=== PATIENT | female | born 1960 | race Caucasian/White ===

== ENCOUNTER → 2017-10-13 | Outpatient (CLI) | payer MEDICARE ==
[~2017-10-13] MED LIST: 1ST CHOICE LAN1 EACH MC; ADULT LOW DOSE81 MG PO; ASPIRIN325 OR; B-COMPLEX-VITA1 EACH PO; BYSTOLIC10 MG OR; CALCIUM PO; CILOSTAZOL 100100 M1 PO; CO Q-10200 MG OR; CRESTOR20 MG PO; GLUCOMETER; HUMALOG100 UNIT/2 SUBQ; HYDROCHLOROTHIA25 M1 PO; LANCET DEVICE1 EACH MC; LANTUS SUBQ; LANTUS100 UNIT/M SUBQ; LIPITOR80 MG PO; LISINOPRIL10 MG PO; LOPRESSOR50 PO; NORCO 5-325 TA1 EACH PO; NORVASC 5 MG TAB5 MG PO; NOVOLOG100 UNIT/1 SUBQ; PLAVIX 75 MG TA75 MG PO; PRESERVISION A1 EAC2 PO; SIMVASTATIN40 MG PO; SYNTHROID100 MC1 PO; SYNTHROID150 MCG PO; SYNTHROID75 MCG PO; VITAMIN D1000 UNI1 OR; ZOCOR 10 MG TAB10 MG OR
[2017-10-13 09:48] LABS: ABSOLUTE BASOPHILS 0.1 thou/uL (0.0-0.2); ABSOLUTE EOSINOPHILS 0.1 thou/uL (0.0-0.7); ABSOLUTE LYMPHOCYTES 0.9 thou/uL (0.8-5.3); ABSOLUTE MONOCYTES 0.5 thou/uL (0.0-1.2); ABSOLUTE NEUTROPHILS 6.3 thou/uL (1.6-8.1); BASOPHILS 1.1 %; EOSINOPHILS 1.5 %; HEMOGLOBIN 13.5 gm/dL (12.0-15.0); LYMPHOCYTES 11.3 %; MCH 28.6 pg (26.0-34.0); MCHC 33.7 g/dL (28.0-37.0); MCV 84.9 fL (80.0-100.0); MONOCYTES 6.3 %; MPV 7.3 fl. (7.2-11.1); NUCLEATED RBCS 0 /100WBC; PLATELET COUNT* 265 thou/uL (150-400); POLYS 79.8 %; RBC 4.71 mil/uL (4.20-5.00); RDW-CV 15.5 % (10.5-14.5); WBC 7.9 thou/uL (4.0-11.0)
[2017-10-13 10:02] LABS: ALBUMIN 3.9 g/dL (3.4-5.0); CALCIUM 9.3 mg/dL (8.5-10.1); CREATININE 1.3 mg/dL (0.6-1.3); PHOSPHORUS* 3.8 mg/dL (2.5-4.9); POTASSIUM 4.3 mmol/L (3.5-5.1)
[2017-10-13 19:09] LABS: eGFR IF AFRICAN AMERICAN 53 (>59)
[2017-10-13 21:11] LABS: PARATHYROID HORMONE 56 pg/mL (15-65)
== END ==
LOC: M.LAB 09:06
PROVIDERS: Internal Medicine Nephrology
DX: I13.0 Hypertensive heart and chronic kidney disease with heart failure and stage 1 through stage 4 chronic kidney disease, or unspecified chronic kidney disease (principal); E11.22 Type 2 diabetes mellitus with diabetic chronic kidney disease; N18.3 Chronic kidney disease, stage 3 (moderate); I50.32 Chronic diastolic (congestive) heart failure; I70.1 Atherosclerosis of renal artery; I25.10 Atherosclerotic heart disease of native coronary artery without angina pectoris; E78.5 Hyperlipidemia, unspecified; I73.9 Peripheral vascular disease, unspecified; N17.0 Acute kidney failure with tubular necrosis; E87.1 Hypo-osmolality and hyponatremia; E66.01 Morbid (severe) obesity due to excess calories; Z95.1 Presence of aortocoronary bypass graft; Z98.890 Other specified postprocedural states; Z87.891 Personal history of nicotine dependence

== ENCOUNTER → 2018-01-10 | Outpatient (CLI) | payer MEDICARE ==
[2018-01-10 14:13] LABS: ALBUMIN 3.7 g/dL (3.4-5.0); ALKALINE PHOSPHATASE 144 U/L (46-116); ANION GAP 13 mmol/L (7-16); BUN 23 mg/dL (7-18); CALCIUM 9.2 mg/dL (8.5-10.1); CHLORIDE 104 mmol/L (98-107); CHOLESTEROL 158 mg/dL (<200); CO2 24 mmol/L (21-32); CREATININE 1.3 mg/dL (0.6-1.3); GLUCOSE 96 mg/dL (70-99); HDL CHOLESTEROL 53 mg/dL (>40); LDL CHOLESTEROL 75 mg/dL (<100); SERUM ASSESSMENT Clear; SGOT 23 U/L (15-37); SGPT 38 U/L (30-65); SODIUM 141 mmol/L (136-145); TOTAL BILIRUBIN 0.7 mg/dL (<0.1-1.0); TOTAL PROTEIN 7.4 g/dL (6.4-8.2); TRIGLYCERIDE 154 mg/dL (<150); VLDL 31 mg/dL (<40)
== END ==
LOC: M.LAB 13:44
PROVIDERS: Internal Medicine
DX: E78.2 Mixed hyperlipidemia (principal); I12.9 Hypertensive chronic kidney disease with stage 1 through stage 4 chronic kidney disease, or unspecified chronic kidney disease; N18.3 Chronic kidney disease, stage 3 (moderate); E11.9 Type 2 diabetes mellitus without complications; I25.10 Atherosclerotic heart disease of native coronary artery without angina pectoris; I73.9 Peripheral vascular disease, unspecified; I40.1 Isolated myocarditis

== ENCOUNTER → 2018-01-16 | Outpatient (CLI) | payer MEDICARE | LOC: M.ULTRA 07:04 | DX: I77.1 Stricture of artery (principal); R09.89 Other specified symptoms and signs involving the circulatory and respiratory systems ==

== ENCOUNTER 2018-03-16 08:18 | Inpatient (IN) | payer MEDICARE ==
[~2018-03-16] VITALS: Ht 165.1 cm; Wt 123.4 kg
[~2018-03-16 08:18] MED LIST changes: -LANTUS100 UNIT/M SUBQ; -NORCO 5-325 TA1 EACH PO; -PRESERVISION A1 EAC2 PO; -SYNTHROID100 MC1 PO; -SYNTHROID150 MCG PO
[2018-03-16 13:21] LABS: ABSOLUTE BASOPHILS 0.1 thou/uL (0.0-0.2); ABSOLUTE EOSINOPHILS 0.1 thou/uL (0.0-0.7); ABSOLUTE MONOCYTES 0.5 thou/uL (0.0-1.2); ABSOLUTE NEUTROPHILS 6.2 thou/uL (1.6-8.1); BASOPHILS 0.9 %; EOSINOPHILS 1.1 %; HEMATOCRIT 40.8 % (37.0-47.0); HEMOGLOBIN 13.9 gm/dL (12.0-15.0); MCHC 34.1 g/dL (28.0-37.0); MCV 85.1 fL (80.0-100.0); MONOCYTES 6.8 %; MPV 7.3 fl. (7.2-11.1); NUCLEATED RBCS 0 /100WBC; PLATELET COUNT* 263 thou/uL (150-400); POLYS 78.2 %; RBC 4.79 mil/uL (4.20-5.00); RDW-CV 14.9 % (10.5-14.5); WBC 7.9 thou/uL (4.0-11.0)
[2018-03-16 13:25] LABS: CALCIUM 9.4 mg/dL (8.5-10.1); CREATININE 1.3 mg/dL (0.6-1.3); POTASSIUM 3.8 mmol/L (3.5-5.1)
[2018-03-16] MEDS ORDERED: LANTUS100 UNIT/M SUBQ (14:00)
[2018-03-16] MEDS ORDERED: SYNTHROID150 MCG PO (14:03)
[2018-03-16] MEDS ORDERED: PRESERVISION A1 EAC2 PO (14:04)
[2018-03-16 14:40] VITALS: BP 173/86
[2018-03-16 23:00] VITALS: BP 120/56
--- NOTE | 2018-03-16 23:17 | NUR ---
PT. IS A 58 YEAR OLD FEMALE ADMITTED TO BED 7 DIAGNOSIS POST CAROTID ENDARTERECTOMY ON LEFT SIDE. ALERT AND ORIENTED X4. C/O PAIN 5/10 BUT DENIED HYDROCODONE. ROOM AIR. ICE PROVIDED TO LEFT CAROTID INCISION. UP TO BEDSIDE COMMODE STAND BY ASSIST. TOLERATING ICE WELL. CALL LIGHT IN REACH, WILL CONTINUE TO MONITOR.
[2018-03-17] VITALS (10 sets, daily range): BP systolic 101–137; BP diastolic 51–58
[2018-03-17] MEDS ORDERED: SYNTHROID100 MC1 PO (00:04)
--- NOTE | 2018-03-17 05:04 | NUR ---
PT. HAS DONE WELL THROUGHOUT THE NIGHT. C/O PAIN, HYDROCODONE GIVEN PER PRN ORDER, PAIN RELIEVED. ROOM AIR. SINUS RHYTHM, BP'S WITHIN NORMAL LIMITS. UP TO BEDSIDE COMMODE STAND BY ASSIST. GOAL TO DISCHARGE HOME TODAY. CALL LIGHT IN REACH, WILL CONTINUE TO MONITOR.
[2018-03-17] MEDS ORDERED: NORCO 5-325 TA1 EACH PO (09:19)
--- NOTE | 2018-03-17 13:46 | EKG ---
[place] [address] ELECTROCARDIOGRAM REPORT Name: SIVAKUMAR BARRAGAN Room: [address] ADM IN [facility]#: [id number] Admission: 03/16/18 Attend Phys: Katiuska Flaherty Discharge: Date of : 56 Report #: [id number] THIS REPORT FOR: //name// [facility] Test Date: 2018-03-16 Test Time: 13:03:31 Pat Name: SIVAKUMAR BARRAGAN Department: Room: [place] [address] Gender: F Cell Efficiency Supervisor: : 1960 Requested By: Juan Pablo Abrams Order Number: [id number] MD: Tony Moraes Measurements Intervals [place] Rate: 94 P: 47 VT: 161 QRS: 35 QRSD: 89 T: 86 QT: 451 QTc: 565 Interpretive Statements Sinus rhythm Borderline T abnormalities, lateral leads Prolonged QT interval Compared to ECG 05/25/2016 15:23:58 Sinus tachycardia no longer present T-wave abnormality still present Electronically Signed On 03-17-2018 13:46:21 CDT by Tony Moraes [email or web address] <ELECTRONICALLY SIGNED> By: Tony Moraes MD, [facility] 03/17/18 1346 1303 1303 Tony Moraes MD, [facility] /EPI
--- NOTE | 2018-03-17 14:33 | NUR ---
PATIENT DISCHARGED HOME. DISCHARGE TEACHING GIVEN BY RAMON BOURGEOIS. REINFORCED BY THIS NURSE. BOTH IVS DISCONTINUED. PATIENT DRESSED HERSELF. ALL BELONGINGS GATHERED BY PATIENT AND HER SON. TAKEN OUT BY WHEELCHAIR WITH THIS NURSE AT 1430 BY WHEELCHAIR AND LEFT WITH SON IN PRIVATE VEHICLE.
--- NOTE | 2018-03-27 08:10 | PATH ---
[facility] [address] [place] [address] PATHOLOGY RPT PROCEDURE Name: SIVAKUMAR BARRAGAN Room: [address] IN .R.#: [id number] Admission: 03/16/18 Date of : 56 Discharge: 03/17/18 Report #: [id number] Path Case #: [id number] [facility] Accession Number: [id number] . 01 Material submitted: . PLAQUE, LEFT CAROTID . 01 Clinical history: . Carotid stenosis. . 02 Diagnosis: Left carotid plaque: - Fibrointimal atherosclerotic plaque with calcifications. (SARAH:pit; 03/21/2018) QTP/03/21/2018 . 02 Electronically signed: . Andi Tay MD, Pathologist NPI- [id number] . 01 Gross description: . Received in formalin labeled "Sivakumar Barragan, left carotid plaque" is a tubular portion of cook-white rubbery tissue measuring 2.2 cm in length and ranging from 0.3-0.6 cm in diameter. The specimen is Y-shaped, and the luminal diameter ranges from 0.2-0.5 cm. Upon sectioning, calcifications comprise approximately 30% of the specimen. Shampoo Person sections are submitted in cassette A1 following decalcification. ([facility]; 03/19/2018) SYC/SYC . 02 Pathologist provided ICD-10: I65.22 . 02 CPT . 693374, [id number] Performed at: 01 [facility] [address], [place] [id number] MD Nicho Obrien MD Phone: [phone] Performed at: 02 [facility] [address] [place] [id number] MD Andi Tay MD Phone: [phone]
--- NOTE | 2018-04-03 13:51 | OP ---
[facility] [address] [place] [address] OPERATIVE REPORT Name: SIVAKUMAR BARRAGAN Room: [address] IN .R.#: [id number] Admission: 03/16/18 Attend Phys: Katiuska Flaherty Discharge: 03/17/18 Date of : 56 Report #: [id number] THIS REPORT FOR: //name// CC: Juan Pablo Reid DATE OF SERVICE: 03/16/2018 PREOPERATIVE DIAGNOSIS: Left carotid stenosis. POSTOPERATIVE DIAGNOSIS: Left carotid stenosis. SURGEON: Juan Pablo Abrams DO. PURCHASER: Darin , ORT. ANESTHESIA: General endotracheal anesthesia. PROCEDURE: 1. Left carotid endarterectomy with bovine pericardial patch angioplasty. 2. Intraoperative carotid duplex. ESTIMATED BLOOD LOSS: 100 mL. SPECIMEN: Plaque. COMPLICATIONS: None. CONDITION: Stable. DISPOSITION: ICU. INDICATIONS FOR THE PROCEDURE AND CONSENT: The patient is a 58-year-old female with severe left internal carotid artery stenosis. Recommendation for left carotid endarterectomy with patch angioplasty was made. Risks and benefits were discussed, infection, bleeding, nerve injury, stroke, heart attack, . The patient wished to proceed, was consented and scheduled. PROCEDURE IN DETAIL: After timeout was performed, the patient was placed in supine position with sterile prep and drape of the anterior neck and chest wall. Of note, she required taping of her chest wall to help exposure of the neck due to her super morbid obesity. Lidocaine was injected in the anticipated incision and semi-transverse incision made anterior to the sternocleidomastoid and dissection carried down using [address] [place] [address] OPERATIVE REPORT Name: SIVAKUMAR BARRAGAN Room: [address] IN [facility].#: [id number] Admission: 03/16/18 Attend Phys: Katiuska Flaherty Discharge: 03/17/18 Date of : 56 Report #: [id number] electrocautery and Metzenbaum scissors used to sharply dissect out the common carotid artery. This was then encircled with a Rumel tourniquet. Facial vein was divided between 2-0 silk sutures and Metzenbaum scissors. The hypoglossal nerve was identified and preserved. The internal and external carotid arteries were then controlled with vessel loops. The patient was systemically heparinized with 6000 units of heparin. The internal, external and common carotid artery was then controlled with clamps and vessel loops and a longitudinal arteriotomy made with 11 blade scalpel and Bundy scissors. A #10 carotid shunt was then used as the distal internal carotid artery was quite small. Once the shunt was applied, the endarterectomy was performed using a plaque elevator. The endarterectomized portion was meticulously cleaned with forceps. The distal end point tapered nicely and did not require any tacking sutures. The area was copiously irrigated. There was noted to have some thrombus formation within the wound. I gave additional 1000 units of heparin as a precaution. Once I was satisfied with the endarterectomy, bovine pericardial patch was selected and sutured in place with 6-0 Prolene in circumferential fashion. The shunt was removed, reapplying clamps. The endarterectomized portion was copiously irrigated with heparin saline. Backbleeding was allowed from the external carotid artery and the area was reirrigated. Two cardiac cycle backbleeding from the internal carotid artery was also allowed and the area was reirrigated and the patch was completed. The blood flow was then restored through the external carotid artery and then up to the internal carotid artery. An intraoperative duplex was then performed, which demonstrated appropriate waveforms for the internal, external and common carotid artery. B-mode imaging demonstrated no flaps, debris or concerns. Please see saved images. Being satisfied with the endarterectomy, the wound was copiously irrigated and noted to be hemostatic. 50 units of protamine was administered by Anesthesia team to reverse the heparin. Wound was then closed in layers using 2-0 Vicryl, 3-0 Vicryl and 4-0 Monocryl suture and Dermabond dressing was applied. The patient tolerated the procedure well. Lap, needle, and instrument counts correct. The patient was transferred to recovery in stable condition. <ELECTRONICALLY SIGNED> By: Juan Pablo Abrams DO 04/03/18 1351 2047 [id number] Pablo Abrams DO /nt
== END 2018-03-17 14:30 | disposition home or self-care (01) | DRG 38 ==
LOC: M.PRE 08:18 → M.TBA 12:40 → M.ICU 12:40
PROVIDERS: Surgery; ADMIT Internal Medicine
DX: I65.22 Occlusion and stenosis of left carotid artery (principal); Z68.42 Body mass index [BMI] 45.0-49.9, adult; E66.01 Morbid (severe) obesity due to excess calories; I10 Essential (primary) hypertension; I12.9 Hypertensive chronic kidney disease with stage 1 through stage 4 chronic kidney disease, or unspecified chronic kidney disease; Z79.899 Other long term (current) drug therapy; I25.10 Atherosclerotic heart disease of native coronary artery without angina pectoris; E78.5 Hyperlipidemia, unspecified; E11.51 Type 2 diabetes mellitus with diabetic peripheral angiopathy without gangrene; N18.3 Chronic kidney disease, stage 3 (moderate); E11.22 Type 2 diabetes mellitus with diabetic chronic kidney disease; Z79.82 Long term (current) use of aspirin; Z95.1 Presence of aortocoronary bypass graft; Z87.891 Personal history of nicotine dependence

== ENCOUNTER → 2018-10-11 | Outpatient (CLI) | payer MEDICARE ==
[~2018-10-11] MED LIST changes: +LANTUS100 UNIT/M SUBQ; +NORCO 5-325 TA1 EACH PO; +PRESERVISION A1 EAC2 PO; +SYNTHROID100 MC1 PO; +SYNTHROID150 MCG PO
[2018-10-11 09:12] LABS: ABSOLUTE BASOPHILS 0.1 thou/uL (0.0-0.2); ABSOLUTE EOSINOPHILS 0.2 thou/uL (0.0-0.7); ABSOLUTE LYMPHOCYTES 1.1 thou/uL (0.8-5.3); ABSOLUTE MONOCYTES 0.6 thou/uL (0.0-1.2); ABSOLUTE NEUTROPHILS 5.4 thou/uL (1.6-8.1); BASOPHILS 1.3 %; EOSINOPHILS 2.1 %; HEMATOCRIT 40.4 % (37.0-47.0); HEMOGLOBIN 13.7 gm/dL (12.0-15.0); LYMPHOCYTES 14.5 %; MCH 29.5 pg (26.0-34.0); MCHC 33.8 g/dL (28.0-37.0); MCV 87.4 fL (80.0-100.0); MONOCYTES 8.2 %; MPV 7.4 fl. (7.2-11.1); NUCLEATED RBCS 0 /100WBC; PLATELET COUNT* 276 thou/uL (150-400); POLYS 73.9 %; RBC 4.63 mil/uL (4.20-5.00); RDW-CV 15.7 % (10.5-14.5); WBC 7.3 thou/uL (4.0-11.0)
[2018-10-11 09:37] LABS: ALBUMIN 3.6 g/dL (3.4-5.0); CALCIUM 8.9 mg/dL (8.5-10.1); CREATININE 1.4 mg/dL (0.6-1.3); POTASSIUM 4.2 mmol/L (3.5-5.1); TOTAL BILIRUBIN 0.6 mg/dL (<0.1-1.0); TOTAL PROTEIN 7.4 g/dL (6.4-8.2)
[2018-10-11 09:50] LABS: CALCIUM 8.9 mg/dL (8.5-10.1); CREATININE 1.5 mg/dL (0.6-1.3); PHOSPHORUS* 4.2 mg/dL (2.5-4.9)
== END ==
LOC: M.LAB 08:46
PROVIDERS: Internal Medicine Nephrology
DX: I12.9 Hypertensive chronic kidney disease with stage 1 through stage 4 chronic kidney disease, or unspecified chronic kidney disease (principal); N18.3 Chronic kidney disease, stage 3 (moderate); E78.5 Hyperlipidemia, unspecified

== ENCOUNTER → 2019-10-22 | Outpatient (CLI) | payer MEDICARE ==
[2019-10-22 10:04] LABS: ABSOLUTE BASOPHILS 0.1 thou/uL (0.0-0.2); ABSOLUTE EOSINOPHILS 0.1 thou/uL (0.0-0.7); ABSOLUTE LYMPHOCYTES 0.9 thou/uL (0.8-5.3); ABSOLUTE MONOCYTES 0.6 thou/uL (0.0-1.2); ABSOLUTE NEUTROPHILS 4.3 thou/uL (1.6-8.1); EOSINOPHILS 1.7 %; HEMATOCRIT 40.2 % (37.0-47.0); LYMPHOCYTES 15.1 %; MCH 30.7 pg (26.0-34.0); MCHC 34.7 g/dL (28.0-37.0); MCV 88.4 fL (80.0-100.0); MONOCYTES 9.8 %; MPV 7.2 fl. (7.2-11.1); NUCLEATED RBCS 0 /100WBC; PLATELET COUNT* 234 thou/uL (150-400); POLYS 72.4 %; RBC 4.55 mil/uL (4.20-5.00); RDW-CV 14.6 % (10.5-14.5); WBC 5.9 thou/uL (4.0-11.0)
[2019-10-22 10:14] LABS: ALBUMIN 3.7 g/dL (3.4-5.0); CALCIUM 8.6 mg/dL (8.5-10.1); CREATININE 1.2 mg/dL (0.6-1.3); PHOSPHORUS* 3.6 mg/dL (2.5-4.9); POTASSIUM 4.7 mmol/L (3.5-5.1)
[2019-10-22 10:30] LABS: CALCIUM 8.4 mg/dL (8.5-10.1); CREATININE 1.3 mg/dL (0.6-1.3); PHOSPHORUS* 3.8 mg/dL (2.5-4.9)
== END ==
LOC: M.LAB 09:26
PROVIDERS: Internal Medicine Nephrology
DX: N18.3 Chronic kidney disease, stage 3 (moderate) (principal)

== ENCOUNTER → 2020-06-24 | Outpatient (CLI) | payer MEDICARE ==
[2020-06-24 11:13] LABS: ABSOLUTE BASOPHILS 0.1 thou/uL (0.0-0.2); ABSOLUTE EOSINOPHILS 0.1 thou/uL (0.0-0.7); ABSOLUTE LYMPHOCYTES 0.9 thou/uL (0.8-5.3); ABSOLUTE MONOCYTES 0.6 thou/uL (0.0-1.2); ABSOLUTE NEUTROPHILS 5.5 thou/uL (1.6-8.1); BASOPHILS 0.8 %; EOSINOPHILS 1.4 %; HEMATOCRIT 42.2 % (37.0-47.0); HEMOGLOBIN 14.7 gm/dL (12.0-15.0); LYMPHOCYTES 12.4 %; MCH 31.9 pg (26.0-34.0); MCHC 34.7 g/dL (28.0-37.0); MCV 91.9 fL (80.0-100.0); MONOCYTES 7.9 %; MPV 6.7 fl. (7.2-11.1); NUCLEATED RBCS 0 /100WBC; PLATELET COUNT* 237 thou/uL (150-400); POLYS 77.5 %; RBC 4.59 mil/uL (4.20-5.00); WBC 7.1 thou/uL (4.0-11.0)
[2020-06-24 11:27] LABS: CALCIUM 8.6 mg/dL (8.5-10.1); CREATININE 1.3 mg/dL (0.6-1.3); PHOSPHORUS* 3.5 mg/dL (2.5-4.9)
[2020-06-24 11:30] LABS: ALBUMIN 3.9 g/dL (3.4-5.0); CALCIUM 8.4 mg/dL (8.5-10.1); CREATININE 1.3 mg/dL (0.6-1.3); PHOSPHORUS* 3.4 mg/dL (2.5-4.9); POTASSIUM 3.7 mmol/L (3.5-5.1)
== END ==
LOC: M.LAB 10:46
PROVIDERS: ATTEND Internal Medicine Nephrology
DX: N18.3 Chronic kidney disease, stage 3 (moderate) (principal)

== ENCOUNTER → 2020-12-23 | Outpatient (CLI) | payer MEDICARE ==
[2020-12-23 10:23] LABS: ABSOLUTE BASOPHILS 0.1 thou/uL (0.0-0.2); ABSOLUTE EOSINOPHILS 0.2 thou/uL (0.0-0.7); ABSOLUTE MONOCYTES 0.6 thou/uL (0.0-1.2); ABSOLUTE NEUTROPHILS 5.8 thou/uL (1.6-8.1); HEMATOCRIT 43.9 % (37.0-47.0); HEMOGLOBIN 14.9 gm/dL (12.0-15.0); LYMPHOCYTES 13.6 %; MCH 30.1 pg (26.0-34.0); MCV 88.5 fL (80.0-100.0); MONOCYTES 7.8 %; MPV 6.9 fl. (7.2-11.1); NUCLEATED RBCS 0 /100WBC; PLATELET COUNT* 276 thou/uL (150-400); POLYS 75.6 %; RBC 4.96 mil/uL (4.20-5.00); RDW-CV 15.2 % (10.5-14.5); WBC 7.6 thou/uL (4.0-11.0)
[2020-12-23 10:37] LABS: ALBUMIN 3.4 g/dL (3.4-5.0); CALCIUM 8.8 mg/dL (8.5-10.1); PHOSPHORUS* 2.9 mg/dL (2.5-4.9); POTASSIUM 3.5 mmol/L (3.5-5.1)
== END ==
LOC: M.LAB 09:59
PROVIDERS: ATTEND Internal Medicine Nephrology
DX: N18.32 Chronic kidney disease, stage 3b (principal)

== ENCOUNTER → 2021-08-24 | Outpatient (CLI) | payer MEDICARE ==
[2021-08-24 11:22] LABS: ABSOLUTE BASOPHILS 0.1 thou/uL (0.0-0.2); ABSOLUTE EOSINOPHILS 0.2 thou/uL (0.0-0.7); ABSOLUTE LYMPHOCYTES 1.1 thou/uL (0.8-5.3); ABSOLUTE MONOCYTES 0.5 thou/uL (0.0-1.2); ABSOLUTE NEUTROPHILS 4.7 thou/uL (1.6-8.1); BASOPHILS 1.2 %; EOSINOPHILS 3.2 %; HEMATOCRIT 43.8 % (37.0-47.0); HEMOGLOBIN 14.9 gm/dL (12.0-15.0); MCH 30.2 pg (26.0-34.0); MCHC 34.1 g/dL (28.0-37.0); MCV 88.4 fL (80.0-100.0); MONOCYTES 7.8 %; MPV 6.8 fl. (7.2-11.1); NUCLEATED RBCS 0 /100WBC; PLATELET COUNT* 269 thou/uL (150-400); POLYS 70.8 %; RBC 4.95 mil/uL (4.20-5.00); RDW-CV 14.7 % (10.5-14.5); WBC 6.7 thou/uL (4.0-11.0)
[2021-08-24 11:36] LABS: ALBUMIN 3.3 g/dL (3.4-5.0); DIRECT BILIRUBIN 0.1 mg/dL (<0.1-0.3); TOTAL BILIRUBIN 0.7 mg/dL (<0.1-1.0); TOTAL PROTEIN 7.4 g/dL (6.4-8.2)
[2021-08-25 10:20] LABS: CALCIUM 8.9 mg/dL (8.5-10.1); PHOSPHORUS* 3.1 mg/dL (2.5-4.9)
== END ==
LOC: M.LAB 10:59
PROVIDERS: ATTEND Internal Medicine Nephrology
DX: N18.31 Chronic kidney disease, stage 3a (principal)